=== PATIENT | female | born 1945 | race Two or more races ===

== ENCOUNTER → 2020-11-27 | Outpatient (CLI) | payer MEDICARE, OTHER ==
--- NOTE | 2020-12-02 10:42 | RAD ---
DATE: 11/27/2020 3:15 PM EXAM: MAMMO [facility] SCREENING BILATERAL HISTORY: Screening COMPARISON: 04/10/2019 Bilateral CC and MLO views of the breasts were performed. Bilateral breast tomosynthesis was performed in CC and MLO projections. This study was interpreted with the benefit of Computerized Aided Detection (CAD). FINDINGS: Breast Density: HETERO The breast parenchyma Is heterogeneously dense, which could reduce sensitivity of mammography. Breast parenchyma level C No suspicious masses, microcalcifications or architectural distortion is present to suggest malignancy in either breast. The visualized axillae are unremarkable. IMPRESSION: No mammographic evidence of malignancy. BI-RADS CATEGORY: 1 NEGATIVE RECOMMENDED FOLLOW-UP: 12M 12 MONTH FOLLOW-UP Annual screening mammography is recommended, unless clinically indicated sooner based on symptoms or change in physical exam. PQRS compliance statement: Patient information was entered into a reminder system with a target due date for the next mammogram. Mammography is a sensitive method for finding small breast cancers, but it does not detect them all and is not a substitute for careful clinical examination. A negative mammogram does not negate a clinically suspicious finding and should not result in delay in biopsying a clinically suspicious abnormality. "Our facility is accredited by the [employer] Mammography Program."
== END ==
LOC: MAMMO 14:54
PROVIDERS: ATTEND Family Medicine
DX: Z12.31 Encounter for screening mammogram for malignant neoplasm of breast (principal)
CPT/HCPCS: 77063; 77067

== ENCOUNTER → 2021-02-11 | Outpatient (CLI) | payer MEDICARE, OTHER ==
--- NOTE | 2021-02-11 11:22 | RAD ---
CT of the abdomen and pelvis without contrast. 02/11/2021 8:26 AM Indication: Reason: RIGHT FLANK PAIN / Spl. Instructions: / History: Comparison Study: None. Technique: Multidetector CT imaging of the abdomen pelvis is obtained without administration of contr ast. Findings: The visualized bilateral lung bases are unremarkable. Prominent pneumobilia noted. The gallbladder is surgically absent. Cystic structure adjacent to the b ile duct may represent a cystic duct remnant, or small type II cyst. The gallbladder is surgically ab sent. No choledocholithiasis is seen.Spleen is unremarkable. The pancreas is otherwise unremarkable.T here is a 3.8 cm mass which appears to be contiguous with the left adrenal gland. 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 Finding is unchanged since September 2009, suggesting a benign lesion. There is a 2 mm nonobstructing stone superior right kidney. There is a 9 mm nonobstructing stone in t he inferior pole the right kidney. The right ureter is nondilated. There is a 2 mm calcification whic h is inseparable from the distal right ureter concerning for a small distal ureteral stone. The bladder is unremarkable. Extensive pelvic phleboliths are noted. On the left there are multiple punctate nonobstructing stones throughout the kidney. The left ureter is unremarkable in course and caliber without evidence of obstruction or ureteral stone. Cysts prese nt in the superior left kidney largest measuring 3 cm in diameter. Largest stone on the left inferior pole measuring 2 mm. There is no evidence of bowel obstruction. No acute inflammatory change is identified. Distal colon d iverticulosis is noted without evidence of acute diverticulitis. No free fluid or free air seen in th e pelvis. No acute osseous changes are identified. IMPRESSION: 1. 2 mm inseparable from the distal right ureter without hydronephrosis or dilatation of the ureter p ossibly reflecting a small nonobstructing ureteral stone. 2. Nonobstructing bilateral nephrolithiasis as described 3. Prominent biliary, most likely postoperative. Correlate with history of ERCP/sphincterotomy. CT DOSING PQRS STATEMENT: One or more of the following individualized dose reduction techniques were utilized for this examinat ion: 1. Automated exposure control 2. Adjustment of the mA and/or kV according to patient size 3. Use of iterative reconstruction technique Electronically signed by: Zackery Quinteros MD (02/11/2021 11:19 AM) [id number]
== END ==
LOC: CT 08:16
PROVIDERS: ATTEND Specialist
DX: N20.0 Calculus of kidney (principal); Z90.49 Acquired absence of other specified parts of digestive tract
CPT/HCPCS: 74176